=== PATIENT | female | born 1990 | race Caucasian/White ===

== ENCOUNTER 2024-10-06 17:10 | Emergency (ER) | payer BC ==
[2024-10-06] MEDS ORDERED: Sodium Chloride 0.9% 10 ML Syringe FLUSH PRN (17:31)
[2024-10-06] MEDS: Ondansetron 4 MG/2 ML SDV IVPUSH ONE (18:08)
[2024-10-06 18:13] LABS: BASOPHILS ABSOLUTE AUTO 0.0 K/mm3 (0.0-0.2); BASOPHILS PERCENT AUTO 0.2 % (0.0-1.0); EOSINOPHILS ABSOLUTE AUTO 0.1 K/mm3 (0.0-0.4); EOSINOPHILS PERCENT AUTO 0.8 % (0.0-6.0); IMMATURE GRAN ABSOLUTE AUTO 0.07 K/mm3 (0.00-0.05); IMMATURE GRAN PERCENT AUTO 0.5 % (0.0-0.4); LYMPHOCYTES ABSOLUTE AUTO 2.7 K/mm3 (1.0-4.8); LYMPHOCYTES PERCENT AUTO 20.9 % (24.0-44.0); MEAN PLATELET VOLUME 11.2 fl (9.4-12.3); MONOCYTES ABSOLUTE AUTO 0.6 K/mm3 (0.0-0.8); MONOCYTES PERCENT AUTO 4.4 % (0.0-8.0); NEUTROPHILS ABSOLUTE AUTO 9.6 K/mm3 (1.8-7.7); NEUTROPHILS PERCENT AUTO 73.2 % (41.0-71.0); NRBC ABSOLUTE 0.00 (0.00-0.02); NRBC PERCENT 0.0 % (0.0-0.2); PLATELET COUNT,PLT 258 K/mm3 (150-400); RED BLOOD CELL COUNT 4.55 M/mm3 (4.10-5.30); WHITE BLOOD CELL COUNT,WBC 13.07 K/mm3 (3.9-11.3)
[2024-10-06 18:37] LABS: A/G RATIO 1.0 (1-2); ALANINE AMINOTRANSFERASE,ALT 33.0 U/L (14-59); ASPARTATE AMNIOTRANSFERASE,AST 20.0 U/L (15-37); BILIRUBIN TOTAL 0.4 mg/dL (0.2-1.0); BLOOD UREA NITROGEN,BUN 12.0 mg/dL (7-18); CARBON DIOXIDE,CO2 25.0 mEq/L (21-32); CHLORIDE,CL 100.0 mEq/L (98-107); CREATININE 0.7 mg/dL (0.55-1.02); EST CRCL DRUG DOSING (CG) 94.56 mL/min; ESTIMATED GFR 117.0 mL/min (>60); GLUCOSE RANDOM 159.0 mg/dL (70-99); POTASSIUM,K 3.2 mEq/L (3.5-5.1); PROTEIN TOTAL,TP 7.9 g/dl (6.4-8.2); SODIUM,NA 136.0 mEq/L (136-145)
[2024-10-06] MEDS: Potassium Chloride 20 MEQ Tab.ER PO ONE (19:21)
[2024-10-06] MEDS: Ketorolac 30 MG/ML SDV IVPUSH ONE (19:21)
[2024-10-06 19:27] VITALS: BP 141/87; PULSE 87
== END 2024-10-06 19:25 | disposition home or self-care (01) ==
LOC: JD.ED 17:10
DX: M54.50 Low back pain, unspecified (principal); Z91.040 Latex allergy status; Z79.899 Other long term (current) drug therapy
CPT/HCPCS: 36415; 80053; 83735; 85025; 93005; 96361; 96374; 96375; 99284; A9270; J1885; J2405; J7030; 93010; 99283

== ENCOUNTER 2024-10-07 12:35 | Emergency (ER) | payer BC ==
[2024-10-07 12:54] VITALS: BP 137/86; PULSE 77
[2024-10-07] MEDS ORDERED: Sodium Chloride 0.9% 10 ML Syringe FLUSH PRN (13:11)
[2024-10-07] MEDS: LORazepam 2 MG/ML SDV IVPUSH ONE (13:27)
[2024-10-07 13:30] LABS: BASOPHILS ABSOLUTE AUTO 0.0 K/mm3 (0.0-0.2); BASOPHILS PERCENT AUTO 0.3 % (0.0-1.0); EOSINOPHILS ABSOLUTE AUTO 0.1 K/mm3 (0.0-0.4); EOSINOPHILS PERCENT AUTO 0.7 % (0.0-6.0); IMMATURE GRAN ABSOLUTE AUTO 0.03 K/mm3 (0.00-0.05); IMMATURE GRAN PERCENT AUTO 0.3 % (0.0-0.4); LYMPHOCYTES ABSOLUTE AUTO 2.4 K/mm3 (1.0-4.8); LYMPHOCYTES PERCENT AUTO 21.8 % (24.0-44.0); MEAN PLATELET VOLUME 11.1 fl (9.4-12.3); MONOCYTES ABSOLUTE AUTO 0.5 K/mm3 (0.0-0.8); MONOCYTES PERCENT AUTO 4.2 % (0.0-8.0); NEUTROPHILS ABSOLUTE AUTO 8.0 K/mm3 (1.8-7.7); NEUTROPHILS PERCENT AUTO 72.7 % (41.0-71.0); NRBC ABSOLUTE 0.00 (0.00-0.02); NRBC PERCENT 0.0 % (0.0-0.2); PLATELET COUNT,PLT 254 K/mm3 (150-400); RED BLOOD CELL COUNT 4.53 M/mm3 (4.10-5.30); WHITE BLOOD CELL COUNT,WBC 11.04 K/mm3 (3.9-11.3)
[2024-10-07] MEDS: Lactated Ringers 1,000 ML IV SCH (13:50)
[2024-10-07 14:03] LABS: POTASSIUM,K 3.8 mEq/L (3.5-5.1); SODIUM,NA 139 mEq/L (136-145)
[2024-10-07 14:04] LABS: A/G RATIO 1.0 (1-2); BILIRUBIN TOTAL 0.6 mg/dL (0.2-1.0); BLOOD UREA NITROGEN,BUN 10 mg/dL (7-18); CARBON DIOXIDE,CO2 25 mEq/L (21-32); CHLORIDE,CL 106 mEq/L (98-107); CREATININE 0.8 mg/dL (0.55-1.02); EST CRCL DRUG DOSING (CG) 82.74 mL/min; ESTIMATED GFR 100 mL/min (>60); GLUCOSE RANDOM 116 mg/dL (70-99); PROTEIN TOTAL,TP 7.3 g/dl (6.4-8.2)
[2024-10-07 14:05] LABS: ALANINE AMINOTRANSFERASE,ALT 34 U/L (14-59); ASPARTATE AMNIOTRANSFERASE,AST 20 U/L (15-37); TROPONIN I HIGH SENSITIVITY < 4 pg/mL (<=51)
[2024-10-07 14:51] LABS: APPEARANCE,URINE CLEAR (Clear); GLUCOSE,URINE NEGATIVE (Negative); OCCULT BLOOD,URINE TRACE-LYSED (Negative)
== END 2024-10-07 15:32 | disposition home or self-care (01) ==
LOC: JD.ED 12:35
DX: F41.9 Anxiety disorder, unspecified (principal); R07.89 Other chest pain; F17.210 Nicotine dependence, cigarettes, uncomplicated; Z91.040 Latex allergy status; Z79.899 Other long term (current) drug therapy
CPT/HCPCS: 36415; 71045; 80053; 81001; 83735; 84484; 84702; 85025; 85379; 93005; 96361; 96374; 99285; J2060; J7120; 93010; 99283

== ENCOUNTER 2024-11-07 11:08 | Emergency (ER) | payer BC ==
[2024-11-07 11:25] VITALS: BP 161/118; PULSE 115
[2024-11-07] MEDS ORDERED: Sodium Chloride 0.9% 10 ML Syringe FLUSH PRN (11:40)
[2024-11-07] MEDS: Ketorolac 30 MG/ML SDV IVPUSH ONE (11:56)
[2024-11-07] MEDS: diphenhydrAMINE 50 MG/ML SDV IVPUSH ONE (11:56)
[2024-11-07] MEDS: droPERidol 2.5 MG/ML SDV IV STA (14:21)
== END 2024-11-07 14:58 | disposition home or self-care (01) ==
LOC: JD.ED 11:08
DX: F41.9 Anxiety disorder, unspecified (principal); R51.9 Headache, unspecified; Z91.040 Latex allergy status
CPT/HCPCS: 96374; 96375; 99283; A9270; J1200; J1790; J1885; J2765; J7030; 99284

== ENCOUNTER 2024-11-08 23:44 | Emergency (ER) | payer BC ==
[2024-11-09] MEDS ORDERED: Sodium Chloride 0.9% 10 ML Syringe FLUSH PRN (00:09)
[2024-11-09 00:35] LABS: BASOPHILS ABSOLUTE AUTO 0.0 K/mm3 (0.0-0.2); BASOPHILS PERCENT AUTO 0.2 % (0.0-1.0); EOSINOPHILS ABSOLUTE AUTO 0.1 K/mm3 (0.0-0.4); EOSINOPHILS PERCENT AUTO 1.2 % (0.0-6.0); IMMATURE GRAN ABSOLUTE AUTO 0.03 K/mm3 (0.00-0.05); IMMATURE GRAN PERCENT AUTO 0.3 % (0.0-0.4); LYMPHOCYTES ABSOLUTE AUTO 3.3 K/mm3 (1.0-4.8); LYMPHOCYTES PERCENT AUTO 28.1 % (24.0-44.0); MEAN PLATELET VOLUME 11.4 fl (9.4-12.3); MONOCYTES ABSOLUTE AUTO 0.7 K/mm3 (0.0-0.8); MONOCYTES PERCENT AUTO 5.7 % (0.0-8.0); NEUTROPHILS ABSOLUTE AUTO 7.5 K/mm3 (1.8-7.7); NEUTROPHILS PERCENT AUTO 64.5 % (41.0-71.0); NRBC ABSOLUTE 0.00 (0.00-0.02); NRBC PERCENT 0.0 % (0.0-0.2); PLATELET COUNT,PLT 232 K/mm3 (150-400); RED BLOOD CELL COUNT 4.31 M/mm3 (4.10-5.30); WHITE BLOOD CELL COUNT,WBC 11.63 K/mm3 (3.9-11.3)
[2024-11-09 00:55] LABS: A/G RATIO 1.2 (1-2); ALANINE AMINOTRANSFERASE,ALT 33.0 U/L (14-59); ASPARTATE AMNIOTRANSFERASE,AST 19.0 U/L (15-37); BILIRUBIN TOTAL 0.7 mg/dL (0.2-1.0); BLOOD UREA NITROGEN,BUN 11.0 mg/dL (7-18); CARBON DIOXIDE,CO2 25.0 mEq/L (21-32); CHLORIDE,CL 107.0 mEq/L (98-107); CREATININE 0.7 mg/dL (0.55-1.02); EST CRCL DRUG DOSING (CG) 98.71 mL/min; ESTIMATED GFR 117.0 mL/min (>60); GLUCOSE RANDOM 103.0 mg/dL (70-99); POTASSIUM,K 3.2 mEq/L (3.5-5.1); PROTEIN TOTAL,TP 7.0 g/dl (6.4-8.2); SODIUM,NA 141.0 mEq/L (136-145)
[2024-11-09 00:57] LABS: LACTIC ACID 0.6 mmol/L (0.4-2.0)
[2024-11-09 01:01] LABS: ETHANOL BLOOD MEDICAL 0.0 gm% (0.00)
[2024-11-09 02:12] LABS: APPEARANCE,URINE CLEAR (Clear); GLUCOSE,URINE NEGATIVE (Negative); OCCULT BLOOD,URINE TRACE-INTACT (Negative)
[2024-11-09 02:20] LABS: BUPRENORPHINE SCREEN,URINE NEGATIVE (CUTOFF=10); METHADONE SCREEN, URINE NEGATIVE (CUTOFF=200); METHAMPHETAMINES SCREEN, URINE NEGATIVE (CUTOFF=500); OXYCODONE SCREEN,URINE NEGATIVE (CUT0FF=100); THC SCREEN,URINE 20 NG/ML NEGATIVE (CUTOFF=50)
[2024-11-09 02:28] LABS: AMPHETAMINES SCREEN, URINE NEGATIVE (CUTOFF=500)
[2024-11-09 02:30] LABS: SQUAMOUS EPITHELIAL CELLS,UR 0-5 /hpf (0-5)
[2024-11-09] MEDS: Potassium Bicarbonate/Cit Ac 20 MEQ Effervescent Tab PO ONE (04:21)
[2024-11-09 04:28] VITALS: BP 121/75; PULSE 62
== END 2024-11-09 04:25 | disposition home or self-care (01) ==
LOC: JD.ED 23:44
DX: R10.13 Epigastric pain (principal); E87.6 Hypokalemia; Z91.040 Latex allergy status
CPT/HCPCS: 36415; 80053; 80306; 80307; 81001; 82140; 83605; 83735; 84443; 84703; 85025; 85379; 86140; 93005; 99283; A9270; 93010

== ENCOUNTER 2024-12-22 20:48 | Emergency (ER) | payer BC ==
[2024-12-22 22:09] VITALS: BP 120/78; PULSE 78
== END 2024-12-22 21:55 | disposition home or self-care (01) ==
LOC: JD.ED 20:48
DX: F41.9 Anxiety disorder, unspecified (principal); Z91.040 Latex allergy status; Z79.899 Other long term (current) drug therapy
CPT/HCPCS: 93005; 93010; 99283; 99284

== ENCOUNTER 2025-01-28 06:44 | Day surgery (SDC) | payer BC ==
[~2025-01-28 06:44] MED LIST: Propofol 200 MG/20 ML SDV ONE
[2025-01-28] MEDS: Lactated Ringers 1,000 ML IV SCH (07:07)
[2025-01-28] MEDS ORDERED: Midazolam 1 MG/ML 2 ML SDV ONE (07:10)
[2025-01-28 08:31] VITALS: BP 104/83; PULSE 58
== END 2025-01-28 08:13 | disposition home or self-care (01) ==
LOC: JD.SDS 06:44
PROVIDERS: ATTEND Surgery
DX: K29.50 Unspecified chronic gastritis without bleeding (principal); K31.89 Other diseases of stomach and duodenum; K21.00 Gastro-esophageal reflux disease with esophagitis, without bleeding; Z91.040 Latex allergy status; Z79.899 Other long term (current) drug therapy
CPT/HCPCS: 43239; C9777; J2250; J2704; J7120